=== PATIENT | male | born 1975 | race Caucasian/White ===

== ENCOUNTER 2021-09-29 10:04 | Emergency (ER) | payer OTHER ==
[~2021-09-29] VITALS: Ht 180.3 cm; Wt 100.0 kg
[2021-09-29 10:30] VITALS: BP 153/107
[2021-09-29] MEDS ORDERED: IV NORMAL SALINE 1,000ML 1,000 ML IV ONE (10:45)
--- NOTE | 2021-09-29 10:55 | RAD ---
Exam Date: 09/29/2021 10:[address] HEAD/BRAIN WO Indication: Reason: Severe headache thunderclap onset / Spl. Instructions: / History: . TECHNIQUE: Head CT was performed without intravenous contrast. One or more of the following dose re duction techniques were utilized: *Automated exposure control (AEC) *Adjustment of mA and/or kV according to patient size *Use of iterative reconstruction technique *CT scan done according to ALARA, or ALARA/IMAGE GENTLY FINDINGS: The ventricles and sulci are normal for the patient's stated age. There is no evidence of acute int racranial hemorrhage, extra-axial collection, mass effect, midline shift, or acute territorial infarc t. No lesion of the skull base or the calvarium is seen. The visualized paranasal sinuses, mastoid ai r cells and orbits are normal in appearance. IMPRESSION: No evidence for acute intracranial abnormality. Electronically signed by: Emiliano Gibbons MD (09/29/2021 10:53 AM) [id number]
[2021-09-29 11:10] LABS: BASO % 0 % (0-3); EOS # 0.1 x10^3/uL (0.0-0.7); EOS % 2 % (0-3); HEMATOCRIT 43.1 % (39.0-53.0); HEMOGLOBIN 14.9 g/dL (13.0-17.5); LYMPH # 1.9 x10^3/uL (1.0-4.8); LYMPH % 25 % (24-48); MEAN CORPUSCULAR HEMOGLOBIN 31 pg (25-35); MEAN CORPUSCULAR HGB CONC 35 g/dL (31-37); MEAN CORPUSCULAR VOLUME 90 fL (79-100); MONO # 0.8 x10^3/uL (0.0-1.1); MONO % 11 % (0-9); NEUT # 4.9 x10^3uL (1.8-7.7); NEUT % 63 % (31-73); PLATELET COUNT 267 x10^3/uL (140-400); RED BLOOD COUNT 4.78 x10^6/uL (4.30-5.70); RED CELL DISTRIBUTION WIDTH 12.4 % (11.5-14.5); WHITE BLOOD COUNT 7.8 x10^3/uL (4.0-11.0)
[2021-09-29] MEDS ORDERED: IOHEXOL 350 MG/ML 100 ML VIAL. IV ONE (11:15)
[2021-09-29 11:19] LABS: CALCIUM 9.2 mg/dL (8.5-10.1); CREATININE 1.2 mg/dL (0.7-1.3); GFR 65.8; POTASSIUM 4.3 mmol/L (3.5-5.1)
[2021-09-29] MEDS ORDERED: methylPREDNISolone SOD SUCC PF 125 MG/2 ML VIAL. ONE (11:26)
[2021-09-29] MEDS ORDERED: diphenhydrAMINE 50 MG/ML VIAL ONE (11:26)
[2021-09-29] MEDS ORDERED: FAMOTIDINE 20 MG/2 ML VIAL IVP ONE (11:30)
[2021-09-29] MEDS ORDERED: methylPREDNISolone SOD SUCC PF 125 MG/2 ML VIAL. IV ONE (11:30)
[2021-09-29] MEDS ORDERED: diphenhydrAMINE 50 MG/ML VIAL IVP ONE (11:30)
[2021-09-29 11:33] LABS: ALBUMIN 4.4 g/dL (3.4-5.0); ALBUMIN/GLOBULIN RATIO 1.5 (1.0-1.7); TOTAL BILIRUBIN 1.1 mg/dL (0.2-1.0); TOTAL PROTEIN 7.4 g/dL (6.4-8.2)
--- NOTE | 2021-09-29 11:41 | PHYS DOC ---
Past History Past Surgical History: Cholecystectomy Additional Past Surgical Histo: right knee (NAOMI MONTIEL APRN) Adult General Chief Complaint Chief Complaint: HEADACHE HPI HPI Patient is a 46-year-old male presents to the emergency department complaining of a thunderclap onset of severe headache while having sex this morning at 6:30 AM. Patient denies a history of headaches or migraines. Patient does report bumping his head on the corner of a desk on the left sikhism last night approximately 11 PM, reports it was not very hard, did not cause any bruising or swelling, did not lose consciousness or have a period of dizziness or visual disturbance. Patient did not have head pain or discomfort this morning when he awoke prior to having sex. Patient denies nausea, vomiting, diarrhea, syncopal or near syncopal episodes, denies dizziness, denies visual disturbances. Denies recent fever or chills. Denies previous similar events. Reported his pain a 10 out of 10 at onset, lasts approximately 5 minutes and has gradually reduced to a 1 out of 10. Patient denies other physical concerns or physical complaints. (NAOMI MONTIEL APRN) Review of Systems Review of Systems 14 body systems of review of systems have been reviewed. See HPI for pertinent positives and negative responses, otherwise all other systems are negative, nonpertinent or noncontributory. Constitutional: Negative except as outlined in HPI above. Skin: Negative except as outlined in HPI above. Eyes: Negative except as outlined in HPI above. HENT: Negative except as outlined in HPI above. Respiratory: Negative except as outlined in HPI above. Cardiovascular: Negative except as outlined in HPI above. GI: Negative except as outlined in HPI above. : Negative except as outlined in HPI above. Musculoskeletal: Negative except as outlined in HPI above. Integument: Negative except as outlined in HPI above. Neurologic: Negative except as outlined in HPI above. Endocrine: Negative except as outlined in HPI above. Lymphatic: Negative except as outlined in HPI above. Psychiatric: Negative except as outlined in HPI above. (NAOMI MONTIEL APRN) Current Medications Current Medications Current Medications Medications (Trade) Dose Ordered Sig/Lisbeth Start Time Stop Time Status Last Admin Dose Admin Diphenhydramine HCl (Benadryl) 50 mg STK-MED ONCE 09/29/21 11:26 09/29/21 11:27 DC Famotidine (Pepcid Vial) 40 mg 1X ONCE 09/29/21 11:30 09/29/21 11:31 UNV Iohexol (Omnipaque 350 Mg/ml) 100 ml 1X ONCE 09/29/21 11:15 09/29/21 11:23 DC 09/29/21 11:19 100 ML Methylprednisolone Sodium Succinate (SOLU-Medrol 125MG VIAL) 125 mg STK-MED ONCE 09/29/21 11:26 09/29/21 11:27 DC Sodium Chloride 1,000 ml @ 1,000 mls/hr 1X ONCE 09/29/21 10:45 09/29/21 11:44 (NAOMI MONTIEL APRN) Allergies Allergies Allergies Coded Allergies Type Severity Reaction Last Updated Verified Iodine and Iodide Containing Produc Allergy Intermediate Itching 09/29/21 Yes (NAOMI MONTIEL APRN) Physical Exam Physical Exam Constitutional: Well developed, well nourished, no acute distress, non-toxic appearance. 46-year-old male in no apparent distress. HENT: Normocephalic, atraumatic. No contusions, swelling, or skull depressions appreciated of the face or skull, no malocclusion, normal voice tones, no drooling, no trismus, no lymphadenopathy of head or neck, bilateral TMs intact a nd within normal limits, no raccoon eyes, no battles sign. Eyes: Conjunctiva normal, no discharge. Satisfactory 6 cardinal eye movements, PERRLA. Neck: Normal range of motion, no stridor. No meningismus signs, no nuchal rigidity. Cardiovascular: No cyanosis appreciated, distal cap refill less than 2 seconds. Lungs & Thorax: Patient is in no respiratory distress, no audible adventitious lung sounds appreciated. Abdomen: Nontender, no abnormalities noted. Skin: Warm, dry, no erythema, no rash. Back: No tenderness, no deformities. Extremities: No tenderness, no cyanosis, no clubbing, ROM intact, no edema. Neurologic: Alert and oriented X 3, normal motor function, normal sensory function, no focal deficits noted. ED NIHSS score 0. Psychologic: Affect normal, judgement normal, mood normal. (NAOMI MONTIEL APRN) Current Patient Data Vital Signs Vital Signs Date Time Temp Pulse Resp B/P (MAP) Pulse Ox O2 Delivery O2 Flow Rate FiO2 09/29/21 10:30 97.9 85 18 153/107 (122) 97 Lab Results Laboratory Tests Test 09/29/21 10:40 White Blood Count 7.8 x10^3/uL (4.0-11.0) Red Blood Count 4.78 x10^6/uL (4.30-5.70) Hemoglobin 14.9 g/dL (13.0-17.5) Hematocrit 43.1 % (39.0-53.0) Mean Corpuscular Volume 90 fL (79-100) Mean Corpuscular Hemoglobin 31 pg (25-35) Mean Corpuscular Hemoglobin Concent 35 g/dL (31-37) Red Cell Distribution Width 12.4 % (11.5-14.5) Platelet Count 267 x10^3/uL (140-400) Neutrophils (%) (Auto) 63 % (31-73) Lymphocytes (%) (Auto) 25 % (24-48) Monocytes (%) (Auto) 11 % (0-9) H Eosinophils (%) (Auto) 2 % (0-3) Basophils (%) (Auto) 0 % (0-3) Neutrophils # (Auto) 4.9 x10^3uL (1.8-7.7) Lymphocytes # (Auto) 1.9 x10^3/uL (1.0-4.8) Monocytes # (Auto) 0.8 x10^3/uL (0.0-1.1) Eosinophils # (Auto) 0.1 x10^3/uL (0.0-0.7) Basophils # (Auto) 0.0 x10^3/uL (0.0-0.2) Sodium Level 141 mmol/L (136-145) Potassium Level 4.3 mmol/L (3.5-5.1) Chloride Level 104 mmol/L (98-107) Carbon Dioxide Level 28 mmol/L (21-32) Anion Gap 9 (6-14) Blood Urea Nitrogen 18 mg/dL (8-26) Creatinine 1.2 mg/dL (0.7-1.3) Estimated GFR (Cockcroft-Gault) 65.8 BUN/Creatinine Ratio 15 (6-20) Glucose Level 84 mg/dL (70-99) Calcium Level 9.2 mg/dL (8.5-10.1) Total Bilirubin 1.1 mg/dL (0.2-1.0) H Aspartate Amino Transferase (AST) 28 U/L (15-37) Alanine Aminotransferase (ALT) 48 U/L (16-63) Alkaline Phosphatase 87 U/L (46-116) Total Protein 7.4 g/dL (6.4-8.2) Albumin 4.4 g/dL (3.4-5.0) Albumin/Globulin Ratio 1.5 (1.0-1.7) (NAOMI MONITEL APRN) EKG EKG [] (NAOMI MONTIEL APRN) Radiology/Procedures Radiology/Procedures REASON: Severe headache thunderclap onset PROCEDURE: CT HEAD WO CONTRAST Exam Date: 09/29/2021 10:[address] HEAD/BRAIN WO Indication: Reason: Severe headache thunderclap onset / Spl. Instructions: / History: . TECHNIQUE: Head CT was performed without intravenous contrast. One or more of the following dose reduction techniques were utilized: *Automated exposure control (AEC) *Adjustment of mA and/or kV according to patient size *Use of iterative reconstruction technique *CT scan done according to ALARA, or ALARA/IMAGE GENTLY FINDINGS: The ventricles and sulci are normal for the patient's stated age. There is no evidence of acute intracranial hemorrhage, extra-axial collection, mass effect, midline shift, or acute territorial infarct. No lesion of the skull base or the calvarium is seen. The visualized paranasal sinuses, mastoid air cells and orbits are normal in appearance. IMPRESSION: No evidence for acute intracranial abnormality. Electronically signed by: Emiliano Gibbons MD (09/29/2021 10:53 AM) [id number] REASON: Thunderclap onset severe headache during sex - 100mls omni 350 PROCEDURE: CT ANGIOGRAPHY HEAD AND NECK CTA HEAD AND NECK W/WO CONTRAST History: Reason: Thunderclap onset severe headache during sex - 100mls omni 350 / Spl. Instructions: / History: Technique: After bolus of intravenous contrast, volumetric CT data acquisition was acquired of the head and neck. Multiplanar reconstruction images to include MIP and 3-D reconstruction images are submitted. Any determination of stenosis is based on NASCET criteria. Comparison: CT head 09/29/2021 Findings: Angiogram neck: Aortic arch: Normal caliber. Three-vessel arch with common origin of the innominate and left common carotid artery, left vertebral origin from the arch and left subclavian origin from the arch. Common carotid arteries: No stenosis, occlusion or dissection. Internal carotid arteries: No stenosis, occlusion or dissection. External carotid arteries: Patent Vertebral arteries: No stenosis, occlusion or dissection. Angiogram head: ICA: No stenosis, occlusion or aneurysm. MCA: No stenosis, occlusion or aneurysm. BARBARA: No stenosis, occlusion or aneurysm. SUBASSEMBLER: No stenosis, occlusion or aneurysm. Basilar artery: No stenosis, occlusion or aneurysm. Distal vertebral arteries: No stenosis, occlusion or aneurysm. Other: Imaged lung apices are unremarkable. Soft tissues appear normal. No pathologic osseous lesions. Degenerative changes of the cervical spine with uncovertebral hypertrophy and disc height loss at C5-C6 causing moderate to severe right neural foraminal stenosis. Impression: 1. No significant arterial stenosis, occlusion or aneurysm within the head or neck. 2. Uncovertebral hypertrophy and disc height loss at C5-C6 causing moderate to severe right neural foraminal stenosis. Correlate for radiculopathy. Exposure: One or more of the following individualized dose reduction techniques were utilized for this examination: 1. Automated exposure control 2. Adjustment of the mA and/or kV according to patient size 3. Use of iterative reconstruction technique. Electronically signed by: Huseyin Thomas MD (09/29/2021 12:31 PM) [id number] (NAOMI MONTIEL APRN) Heart Score C/O Chest Pain: No Risk Factors: Risk Factors: DM, Current or recent (<one month) smoker, HTN, HLP, family history of CAD, obesity. Risk Scores: Risk Factors: DM, Current or recent (<one month) smoker, HTN, HLP, family history of CAD, obesity. (NAOMI MONTIEL APRN) Course & Med Decision Making Course & Med Decision Making Pertinent Labs and Imaging studies reviewed. (See chart for details) 46-year-old male, vital signs reviewed, presents emerged from concerning thunderclap onset headache during sex this morning. Physical examination is unremarkable, ED NIHSS score 0. Related to patient's explanation of events will order CT head to rule out acute bleed or other abnormality, pending no bleed will consider CTA head and neck, IV normal saline, saline lock, CBC, CMP. Patient CT head without contrast negative for acute process. Will order CTA head and neck. Shortly after CTA was complete, patient complained of itchiness and tingling to the right side of his mouth and tongue, ordered 50 IV Benadryl, 40 IV Pepcid, 125 mg IV Solu-Medrol, patient airway is patent and intact, there is no tongue swelling, no uvular edema or deviation, no laryngeal edema, no drooling, no trismus, patient speaking in normal voice tones. There is no rash or erythema at the skin appreciated. This is most likely a mild adverse medication reaction to IV contrast dye. ED nurse reports upon reviewing medications with patient, patient just remembered he has an adverse medication reaction to Pepcid in which she experiences esophageal spasms, IV Pepcid was not given, IV Pepcid order has been DC'd. CTA of head and neck nonconcerning. Upon reevaluation of the patient and dis cussion of ED findings, patient reports he is no longer having adverse medication reaction symptoms, reports all onset of symptoms have resolved, patient denies headaches, is in no respiratory distress, is hemodynamically stable, also discussed with patient abnormal finding of C5-C6 spinal stenosis, patient does complain of intermittent paresthesias of his upper extremities, reports he will follow-up with his primary care physicians at the [facility] for ongoing evaluation of this. Discussed return to ER precautions and concerns, patient gave verbal understanding of and is amenable to ED discharge planning. Discussed with the patient all findings and diagnostic testing as well as the need to follow-up with their primary care provider for further evaluation and treatment or return to the ED if any new or worsening symptoms. Strict return precautions were also discussed at length, the patient voiced understanding and agreement with the discharge planning. The patient was nontoxic in appearance, in no apparent distress, and hemodynamically stable at the time of disposition. (NAOMI MONTIEL APRN) Course & Med Decision Making I was the Attending physician on the above date of service of this patient. This patient was evaluated, examined, treated, and dispositioned from the emergency department by the mid-level practitioner. I reviewed case with ASSISTANT INFANT TEACHER and agreed to plan of care and dispo as stated Electronically signed, Lucina Pereyra DO (LUCINA PEREYRA DO) Asim Disclaimer Dragon Disclaimer This electronic medical record was generated, in whole or in part, using a voice recognition dictation system. (NAOMI MONTIEL APRN) NIH Stroke Scale: NIH Stroke Scale Response (Comments) Value Level of Consciousness: 0 Alert/Responsive 0 LOC Questions: 0 Answers both correctly 0 LOC Commands: 0 Performs both tasks 0 Best Gaze: 0 Normal 0 Visual: 0 No visual loss 0 Facial Palsy: 0 Normal, symmetrical 0 Motor - Left Arm 0 No drift 0 Motor - Right Arm 0 No drift 0 Motor - Left Leg 0 No drift 0 Motor: Right Leg 0 No drift 0 Limb Ataxia: 0 Absent 0 Sensory: 0 No loss 0 Best Language: 0 Normal 0 Dysathria: 0 Normal 0 Extinction and Inattention: 0 Normal 0 Total 0 Departure Departure: Impression: Primary Impression: Headache Disposition: HOME / SELF CARE / HOMELESS Condition: GOOD Referrals: TOÑITO PABLO (PCP) Patient Instructions: General Headache Without Cause Additional Instructions: You were seen today in the emergency department for sudden onset of headache. An extensive emergency neurological study was performed today in the emergency department including a CT of your head, CT angiography of your head and neck, lab work, all tests were reassuring and that you do not have a brain bleed, no tumor or aneurysm or other neurological abnormality of the brain was appr eciated. He had reported your headache has resolved. As we discussed there was an incidental finding of a spinal abnormality, I have provided you with the CT report, please take this with you for a follow-up appointment with your primary care physician on the [facility] for ongoing evaluation and treatment of this abnormal CT finding. Return to the emergency department for worsening symptoms or other concerns. Thank you for visiting our Emergency Department. It was a pleasure taking care of you today in the emergency department and we appreciate you trusting us with your care. If any additional problems come up don't hesitate to return to visit us. Please follow up with your primary care provider so they can plan additional care if needed and know about the problem that you had. If symptoms worsen come back to the Emergency Department. Any concerning symptoms that start such as chest pain, shortness of air, weakness or numbness on one side of the body, running high fevers or any other concerning symptoms return to the ER. EMERGENCY DEPARTMENT GENERAL DISCHARGE INSTRUCTIONS Thank you for coming to [facility] (ED) today and trusting us with you care. We trust that you had a positivie experience in our Emergency Department. If you wish to speak to the department management, you may call the director at [phone]. YOUR FOLLOW UP INSTRUCTIONS ARE FOLLOWS: 1. Do you have a private Doctor? If you do not have a private doctor, please ask for a resource list of physicians or clinics that may be able to assist you with follow up care. 2. The Emergency Physician has interpreted your x-rays. The X-Ray specialist will also review them. If there is a change in the findings, you will be notified in 48 hours when at all possible. 3. A lab test or culture has been done, your results will be reviewed and you will be notified if you need a change in treatment. ADDITIONAL INSTRUCTIONS AND INFORMATION: 1. Your care today has been supervised by a physician who is specially trained in emergency care. Many problems require more than one evaluation for a complete diagnosis and treatment. We recommend that you schedule your follow up appointment as recommended to ensure complete treatment of you illness or injury. If you are unable to obtain follow up care and continue to have a problem, or if your condition worsens, we recommend that you return to the ED. 2. We are not able to safely determine your condition over the phone nor are we able to give sound medical advice over the phone. For these safety reasons, if you call for medical advice we will ask you to come to the ED for further evaluation. 3. If you have any questions regarding these discharge instructions please call the ED at [phone]. SAFETY INFORMATION: In the interest of safety, wellness, and injury prevention; we encourage you to wear your sealbelt, if you smoke; quite smoking, and we encourage family to use a protective helmet for bicycling and other sporting events that present an increased risk for head injury. IF YOUR SYMPTOMS WORSEN OR NEW SYMPTOMS DEVELOP, OR YOU HAVE CONCERNS ABOUT YOUR CONDITION; OR IF YOUR CONDITION WORSENS WHILE YOU ARE WAITING FOR YOUR FOLLOW UP APPOINTMENT; EITHER CONTACT YOUR PRIMARY CARE DOCTOR, THE PHYSICIAN WHOSE NAME AND NUMBER YOU WERE GIVEN, OR RETURN TO THE ED IMMEDIATELY. Problem Qualifiers Primary Impression: Headache Headache type: unspecified Headache chronicity pattern: acute headache Intractability: not intractable Qualified Codes: R51.9 - Headache, unspecified NAOMI MONTIEL DRILL BIT SHARPENER Sep 29, 2021 11:41 LUCINA PEREYRA DO Sep 30, 2021 06:24
--- NOTE | 2021-09-29 12:34 | RAD ---
CTA HEAD AND NECK W/WO CONTRAST History: Reason: Thunderclap onset severe headache during sex - 100mls omni 350 / Spl. Instructions: / History: Technique: After bolus of intravenous contrast, volumetric CT data acquisition was acquired of the he ad and neck. Multiplanar reconstruction images to include MIP and 3-D reconstruction images are submi tted. Any determination of stenosis is based on NASCET criteria. Comparison: CT head 09/29/2021 Findings: Angiogram neck: Aortic arch: Normal caliber. Three-vessel arch with common origin of the innominate and left common c arotid artery, left vertebral origin from the arch and left subclavian origin from the arch. Common carotid arteries: No stenosis, occlusion or dissection. Internal carotid arteries: No stenosis, occlusion or dissection. External carotid arteries: Patent Vertebral arteries: No stenosis, occlusion or dissection. Angiogram head: ICA: No stenosis, occlusion or aneurysm. MCA: No stenosis, occlusion or aneurysm. BARBARA: No stenosis, occlusion or aneurysm. MEDICAL EDUCATION MANAGER: No stenosis, occlusion or aneurysm. Basilar artery: No stenosis, occlusion or aneurysm. Distal vertebral arteries: No stenosis, occlusion or aneurysm. Other: Imaged lung apices are unremarkable. Soft tissues appear normal. No pathologic osseous lesions. Degenerative changes of the cervical spine with uncovertebral hypertro phy and disc height loss at C5-C6 causing moderate to severe right neural foraminal stenosis. Impression: 1. No significant arterial stenosis, occlusion or aneurysm within the head or neck. 2. Uncovertebral hypertrophy and disc height loss at C5-C6 causing moderate to severe right neural fo raminal stenosis. Correlate for radiculopathy. Exposure: One or more of the following individualized dose reduction techniques were utilized for thi s examination: 1. Automated exposure control 2. Adjustment of the mA and/or kV according to patient size 3. Use of iterative reconstruction technique. Electronically signed by: Huseyin Thomas MD (09/29/2021 12:31 PM) [id number]
== END 2021-09-29 13:05 | disposition home or self-care (01) ==
LOC: ER 10:04
DX: R51.9 Headache, unspecified (principal); Z90.49 Acquired absence of other specified parts of digestive tract
CPT/HCPCS: 36415; 70450; 70496; 70498; 80053; 85025; 96361; 96374; 96375; 99284; J1200; J2930; J7030; Q9967